=== PATIENT | male | born 1980 | race Caucasian/White ===

== ENCOUNTER 2017-04-11 17:45 | Emergency (ER) | payer OTHER ==
--- NOTE | 2017-04-11 18:15 | C.PDOC ---
History Of Present Illness Luis Miguel Em, a 36 year old male, presents to the ED complaining of a sore throat associated with painful swallowing x2 days. Denies vomiting, diarrhea, chest pain, shortness of breath. Time Seen by Provider: 04/11/17 18:05 Chief Complaint (Nursing): ENT Problem History Per: Patient History/Exam Limitations: None Onset/Duration Of Symptoms: Days (x2 days) Current Symptoms Are (Timing): Still Present Quality (Mouth/Throat): Redness Past Medical History Reviewed: Historical Data, Nursing Documentation, Vital Signs Vital Signs: Last Vital Signs Temp 97.8 F 04/11/17 19:00 Pulse 79 04/11/17 19:00 Resp 16 04/11/17 19:00 BP 127/85 04/11/17 19:00 Pulse Ox 100 04/11/17 19:00 - Medical History PMH: No Chronic Diseases Surgical History: No Surg Hx Family History: States: Unknown Family Hx - Social History Hx Alcohol Use: No Hx Substance Use: No Review Of Systems ENT: Positive for: Throat Pain, Other (Painful swallowing) Cardiovascular: Negative for: Chest Pain Respiratory: Negative for: Shortness of Breath Gastrointestinal: Negative for: Vomiting, Diarrhea Physical Exam - Physical Exam Appears: Well, Non-toxic, No Acute Distress Skin: Normal Color, Warm, Dry, No Rash Head: Atraumatic, Normacephalic, No Tenderness Eye(s): bilateral: Normal Inspection, PERRL, EOMI Ear(s): Bilateral: Normal Tongue: No Swelling Throat: Erythema (Moderate), No Exudate Neck: Normal ROM, Supple Chest: Symmetrical, No Tenderness, No Ecchymosis Cardiovascular: Rhythm Regular, No Edema, No Murmur Respiratory: Normal Breath Sounds, No Rales, No Rhonchi, No Wheezing Gastrointestinal/Abdominal: Soft, No Tenderness, No Organomegaly Extremity: Normal ROM Neurological/Psych: Oriented x3, Normal Speech, Normal Cognition, Normal Motor Gait: Steady ED Course And Treatment O2 Sat by Pulse Oximetry: 98 (RA) Pulse Ox Interpretation: Normal Disposition - Disposition Referrals: Blanca Fournier [Staff Provider] - Disposition: HOME/ ROUTINE Disposition Time: 18:56 Condition: GOOD Additional Instructions: Follow up with the medical doctor within 1-2 days. Return if worsened. Prescriptions: Amoxicillin 500 mg PO BID #14 tab Ibuprofen [Motrin] 1 tab PO TID PRN #30 tab PRN Reason: Pain Instructions: Pharyngitis (ED) Forms: [facility] [place] [facility] (Dominican) - Clinical Impression Clinical Impression: Pharyngitis - Scribe Statement The provider has reviewed the documentation as recorded by the Nadiyaibkarri Mckoy All medical record entries made by the Nadiyaibe were at my direction and personally dictated by me. I have reviewed the chart and agree that the record accurately reflects my personal performance of the history, physical exam, medical decision making, and the department course for this patient. I have also personally directed, reviewed, and agree with the discharge instructions and disposition.
[2017-04-11 19:01] VITALS: BP 127/85; PULSE 79; RESP 16; TEMP 97.8
[2017-04-11 22:00] VITALS: O2SAT 98
== END 2017-04-11 19:00 | disposition home or self-care (01) ==
LOC: C.ER 17:45
DX: J02.9 Acute pharyngitis, unspecified (principal)

== ENCOUNTER 2017-11-29 10:47 | Emergency (ER) | payer OTHER ==
[2017-11-29 11:05] VITALS: RESP 18; TEMP 98.3
[2017-11-29] MEDS ORDERED: Lidocaine 5% Patch TD STA (11:31)
[2017-11-29] MEDS ORDERED: Lidocaine 5% Patch TD ONE (11:39)
--- NOTE | 2017-11-29 12:08 | RAD ---
PROCEDURE: Radiographs of the Chest and Right Ribs. HISTORY: Fall COMPARISON: None available. TECHNIQUE: Frontal radiograph of the chest and multiple oblique radiographs of the right ribs were obtained. FINDINGS: RIGHT RIBS: No acute rib fracture or focal lesion visualized. LUNGS: The lungs are well inflated and clear. PLEURA: No pneumothorax or pleural fluid. CARDIOVASCULAR: Normal sized heart. No pulmonary vascular congestion. OTHER FINDINGS: None. IMPRESSION: No acute rib fracture. Clear lungs.
--- NOTE | 2017-11-29 13:11 | C.PDOC ---
History Of Present Illness 36 year old male with no significant PMHx presents to the ED for evaluation of right sided rib cage pain. Patient reports that yesterday he fell down and landed on his right side on top of a stroller. Patient is now c/o right sided rib cage pain. Patient reports pain worsens with movement, deep breathing, change in position and rates his pain as 10/10. Patient denies headache , head trauma, LOC, SOB, weakness, numbness. Time Seen by Provider: 11/29/17 11:26 Chief Complaint (Nursing): Back Pain History Per: Patient History/Exam Limitations: no limitations Onset/Duration Of Symptoms: Days Current Symptoms Are (Timing): Still Present Quality Of Discomfort: "Pain" Pain Scale Rating Of: 10 Exacerbating Factor(s): Turning, Movement Recent travel outside of the [place]: No Additional History Per: Patient Past Medical History Reviewed: Historical Data, Nursing Documentation, Vital Signs Vital Signs: Last Vital Signs Temp 98.3 F 11/29/17 13:40 Pulse 70 11/29/17 13:40 Resp 18 11/29/17 13:40 BP 101/67 11/29/17 13:40 Pulse Ox 100 11/29/17 13:40 - Medical History PMH: No Chronic Diseases Surgical History: No Surg Hx Family History: States: Unknown Family Hx - Social History Hx Alcohol Use: No Hx Substance Use: No - Immunization History Hx Tetanus Toxoid Vaccination: No Hx Influenza Vaccination: No Hx Pneumococcal Vaccination: No Review Of Systems Constitutional: Negative for: Fever, Chills Cardiovascular: Positive for: Chest Pain Respiratory: Negative for: Cough, Shortness of Breath Gastrointestinal: Negative for: Abdominal Pain Musculoskeletal: Negative for: Back Pain Skin: Negative for: Rash Neurological: Negative for: Weakness, Numbness Physical Exam - Physical Exam Appears: Non-toxic, No Acute Distress Skin: Normal Color, Warm, Dry Head: Atraumatic, Normacephalic Eye(s): bilateral: Normal Inspection Nose: No Discharge Oral Mucosa: Moist Neck: Normal ROM, Supple Chest: Symmetrical, Tenderness (right sided rib cage) Cardiovascular: Rhythm Regular, No Murmur Respiratory: Normal Breath Sounds, No Rales, No Rhonchi, No Wheezing Extremity: Normal ROM, No Tenderness, No Swelling Neurological/Psych: Oriented x3, Normal Motor, Normal Sensation Gait: Steady ED Course And Treatment O2 Sat by Pulse Oximetry: 99 (ON RA) Pulse Ox Interpretation: Normal - Other Rad Rib and Chest X-Ray X-Ray: Viewed By Me, Read By Radiologist Interpretation: PROCEDURE: Radiographs of the Chest and Right Ribs. HISTORY: Fall. COMPARISON: None available. TECHNIQUE: Frontal radiograph of the chest and multiple oblique radiographs of the right ribs were obtained. FINDINGS: RIGHT RIBS: No acute rib fracture or focal lesion visualized. LUNGS : The lungs are well inflated and clear. PLEURA: No pneumothorax or pleural fluid. CARDIOVASCULAR: Normal sized heart. No pulmonary vascular congestion. OTHER FINDINGS: None. IMPRESSION: No acute rib fracture. Clear lungs. Medical Decision Making Medical Decision Making: Impression: rib cage pain Plan: * Rib cage and Chest X-Ray * Lidoderm 1 ea TD * Motrin 600 mg PO * Tylenol 975 mg PO No fractures/pneumo as per XRay. [employer] translation services to answer all the patient's questions. Disposition Counseled Patient/Family Regarding: Studies Performed, Diagnosis, Need For Followup, Rx Given - Disposition Referrals: [facility] [Outside] Disposition: HOME/ ROUTINE Disposition Time: 14:40 Condition: STABLE Additional Instructions: Follow up with your doctor or our clinic. Return to the Emergency Department with any further concerns. Prescriptions: Ibuprofen [Motrin] 600 mg PO TID #15 tab traMADol/Acetaminophen [Ultracet 37.5/325 mg] 1 tab PO TID PRN #20 tab PRN Reason: pain Instructions: Contusion (DC) Forms: [facility] (Turkmen), General Discharge Instructions, Work Excuse - POA Present On Arrival: None - Clinical Impression Clinical Impression: Contusion of rib on right side - Scribe Statement The provider has reviewed the documentation as recorded by the Scribe Checo Pfeiffer All medical record entries made by the Scribe were at my direction and personally dictated by me. I have reviewed the chart and agree that the record accurately reflects my personal performance of the history, physical exam, medical decision making, and the department course for this patient. I have also personally directed, reviewed, and agree with the discharge instructions and disposition.
[2017-11-29 13:40] VITALS: BP 101/67; PULSE 70
[2017-11-29 14:42] VITALS: O2SAT 99
== END 2017-11-29 14:48 | disposition home or self-care (01) ==
LOC: C.ER 10:47
DX: S20.211A Contusion of right front wall of thorax, initial encounter (principal); W18.30XA Fall on same level, unspecified, initial encounter